=== PATIENT | female | born 1990 | race African-American/Black ===

== ENCOUNTER 2016-12-15 06:33 | Emergency (ER) | payer OTHER ==
[~2016-12-15] VITALS: Ht 177.8 cm; Wt 68.0 kg
[~2016-12-15 06:33] MED LIST: BUPR75TA4 PO; GABA-339 PO
[2016-12-15] MEDS ORDERED: LIDOCAINE 2%HCL (LOCAL ANESTH.) INJ 20ML MDV ONE (07:21)
[2016-12-15 07:27] VITALS: BP 136/80
[2016-12-15] MEDS ORDERED: DOCUSATE SOD 100 MG CAP PO ONE (08:30)
== END 2016-12-15 09:00 | disposition home or self-care (01) ==
LOC: ER 06:33 → EDUNIT# 06:33 → EDBD 06:33 → ER 09:00
DX: T16.1XXA Foreign body in right ear, initial encounter (principal); H61.21 Impacted cerumen, right ear; J45.909 Unspecified asthma, uncomplicated; F17.210 Nicotine dependence, cigarettes, uncomplicated; Z88.8 Allergy status to other drugs, medicaments and biological substances; Z79.899 Other long term (current) drug therapy; X58.XXXA Exposure to other specified factors, initial encounter; Y93.89 Activity, other specified; Y92.89 Other specified places as the place of occurrence of the external cause; Y99.8 Other external cause status
CPT/HCPCS: 69209

== ENCOUNTER 2017-04-12 14:37 | Emergency (ER) | payer OTHER ==
[~2017-04-12] VITALS: Ht 165.1 cm; Wt 94.3 kg
[2017-04-12] MEDS ORDERED: fentaNYL CITRATE 100 MCG/2 ML VL ONE (14:47)
[2017-04-12 15:00] VITALS: BP 140/86
[2017-04-12] MEDS ORDERED: SODIUM CHLORIDE 0.9% 1,000 ML IV ONE (15:20)
[2017-04-12] MEDS ORDERED: fentaNYL CITRATE 100 MCG/2 ML VL IV ONE (15:30)
[2017-04-12 16:07] LABS: Basophils # (auto) 0 uL; Basophils % (auto) 0.2 % (0.0-2.0); Eosinophils # (auto) 0.1 uL; Eosinophils % (auto) 1.3 % (0.0-7.0); Hemoglobin 12.1 g/dL (12.2-16.2); Lymphocytes # (auto) 1.4 uL; Mean Corpuscular Hemoglobin 31.8 pg (28.0-32.0); Mean Corpuscular Hgb Conc. 32.6 g/dL (32.0-36.0); Mean Corpuscular Volume 97.6 fL (80.0-100.0); Monocytes # (auto) 0.7 uL; Monocytes % (auto) 6.9 % (0.0-12.0); Neutrophils # (auto) 7.7 uL; Neutrophils % (auto) 77.6 % (37.0-80.0); Nucleated Red Blood Cells % 0.3 %; Red Blood Cells 3.79 10^6/uL (4.0-5.20); Red Cell Distribution Width 13.3 % (11.8-14.3)
[2017-04-12 16:10] LABS: Platelet Count (auto) 135 10^3/uL (140-450)
[2017-04-12 16:17] LABS: Albumin 2.5 g/dL (3.4-5.0); Calcium 7.8 mg/dL (8.5-10.1); Potassium 3.6 mmol/L (3.5-5.1)
[2017-04-12 16:19] LABS: BUN/Creatinine Ratio 14.8
[2017-04-12 16:21] LABS: Bilirubin, Total 0.3 mg/dL (0.2-1.0); Total Protein 6.9 g/dL (6.4-8.2)
== END 2017-04-12 17:36 | disposition home or self-care (01) ==
LOC: ER 14:37 → EDUNIT# 14:37 → ER 17:36
DX: O9A.213 Injury, poisoning and certain other consequences of external causes complicating pregnancy, third trimester (principal); S82.851A Displaced trimalleolar fracture of right lower leg, initial encounter for closed fracture; O99.333 Smoking (tobacco) complicating pregnancy, third trimester; O99.513 Diseases of the respiratory system complicating pregnancy, third trimester; R55 Syncope and collapse; J45.909 Unspecified asthma, uncomplicated; Z3A.29 29 weeks gestation of pregnancy; Z83.3 Family history of diabetes mellitus; W18.39XA Other fall on same level, initial encounter; Y93.89 Activity, other specified; Y92.89 Other specified places as the place of occurrence of the external cause; Y99.8 Other external cause status
CPT/HCPCS: 27780; 36415; 73600; 76805; 80053; 82962; 85025; 94761; 96374; 99285; J3010

== ENCOUNTER 2023-04-08 15:29 | Emergency (ER) | payer MEDICAID, OTHER ==
[~2023-04-08] VITALS: Ht 167.6 cm; Wt 68.4 kg
[2023-04-08 16:25] LABS: Urine Bacteria NONE SEEN /hpf (None Seen); Urine Blood 2+ /uL (Negative); Urine Clarity CLOUDY (Clear); Urine Color Yellow (Yellow); Urine Mucus MODERATE (None Seen); Urine Protein, UAD 2+ (Negative); Urine Specific Gravity 1.024 (1.001-1.035); Urine WBC 289 /hpf (0 - 5)
[2023-04-08] MEDS ORDERED: cefTRIAXone SOD 1,000 MG VL IM ONE (17:30)
[2023-04-08] MEDS ORDERED: PHENAZOPYRIDINE HCL 100 MG TAB PO ONE (17:30)
[2023-04-08] MEDS ORDERED: CEPH500C PO (17:45)
[2023-04-08] MEDS ORDERED: PHEN-1045 PO (17:45)
[2023-04-08] MEDS ORDERED: MET500T PO (17:45)
[2023-04-08] MEDS ORDERED: FLUCONAZOLE 100 MG TAB PO ONE ×2 (17:45→17:46)
[2023-04-08 17:49] VITALS: BP 111/76; PULSE 69; RESP 18; O2SAT 100
== END 2023-04-08 18:24 | disposition home or self-care (01) ==
LOC: ER 15:29
DX: N39.0 Urinary tract infection, site not specified (principal); N76.0 Acute vaginitis; F17.210 Nicotine dependence, cigarettes, uncomplicated; J45.909 Unspecified asthma, uncomplicated; Z11.3 Encounter for screening for infections with a predominantly sexual mode of transmission; Z88.6 Allergy status to analgesic agent
CPT/HCPCS: 81001; 86256; 96372; 99283; J0696

== ENCOUNTER 2023-04-13 18:42 | Emergency (ER) | payer MEDICAID ==
[~2023-04-13] VITALS: Ht 167.6 cm; Wt 70.8 kg
[~2023-04-13 18:42] MED LIST changes: +CEPH500C PO; +MET500T PO; +PHEN-1045 PO
[2023-04-13] MEDS ORDERED: ACETAMINOPHEN 500 MG TAB PO ONE (19:15)
[2023-04-13 19:20] LABS: Urine Bacteria FEW /hpf (None Seen); Urine Blood Negative /uL (Negative); Urine Clarity Clear (Clear); Urine Color Colorless (Yellow); Urine Protein, UAD Negative (Negative); Urine Specific Gravity 1.004 (1.001-1.035); Urine Urobilinogen Normal (Negative); Urine WBC 3 /hpf (0 - 5); Urine pH 5.5 (5.0-8.0)
[2023-04-13 19:53] VITALS: BP 118/85; PULSE 72; RESP 19; TEMP 98.3; O2SAT 98
[2023-04-13] MEDS ORDERED: ACE3T PO ×3 (20:01→20:27)
[2023-04-13] MEDS ORDERED: IBUP-1455 PO ×3 (20:01→20:27)
== END 2023-04-13 20:28 | disposition home or self-care (01) ==
LOC: ER 18:42
DX: M25.552 Pain in left hip (principal); M54.16 Radiculopathy, lumbar region; J45.909 Unspecified asthma, uncomplicated; F17.210 Nicotine dependence, cigarettes, uncomplicated
CPT/HCPCS: 72100; 73502; 81001